=== PATIENT | male | born 1960 | race American Indian/Alaskan Native ===

== ENCOUNTER 2020-03-13 06:44 | Day surgery (SDC) | payer BC ==
[2020-03-13] MEDS ORDERED: SODIUM CHLORIDE 0.9% 1000 ML 1,000 ML IV SCH (07:00)
[2020-03-13] MEDS ORDERED: WATER FOR IRRIG STERILE 250 ML BOTTLE IR ONE (07:33)
--- NOTE | 2020-03-13 07:38 | Anesthesia Day of Surgery ---
Anesthesia Day of Surgery - Day of Surgery Patient Examined: Yes Patient H&P Reviewed: Yes Patient is NPO: Yes
--- NOTE | 2020-03-13 07:38 | Anesthesia Consultation ---
Anesthesia Consult and Med Hx Date of service: 03/13/20 - Airway Anesthetic Teeth Evaluation: Good ROM Head & Neck: Adequate Mental/Hyoid Distance: Adequate Mallampati Class: Class II Intubation Access Assessment: Probably Good - Pre-Operative Health Status ASA Pre-Surgery Classification: ASA3 Proposed Anesthetic Plan: MAC - Pulmonary Hx Smoking: No Hx Asthma: No Hx Respiratory Symptoms: No SOB: No COPD: No Home Oxygen Therapy: No Hx Pneumonia: No Hx Sleep Apnea: Yes - Cardiovascular System Hx Hypertension: Yes Hx Coronary Artery Disease: No Hx Heart Attack/AMI: No Hx Angina: No Hx Percutaneous Transluminal Coronary Angioplasty (PTCA): No Hx Cardia Arrhythmia: No Hx Pacemaker: No Hx Internal Defibrillator: No Hx Valvular Heart Disease: No Hx Heart Murmur: No Hx Peripheral Vascular Disease: No - Central Nervous System Hx Neuromuscular Disorder: No Hx Seizures: No CVA: No Hx Back Pain: No Hx Psychiatric Problems: No - Gastrointestinal Hx Ulcer: No Hx Gastroesophageal Reflux Disease: Yes (AVMs) - Endocrine Hx Renal Disease: No Hx End Stage Renal Disease: No Hx Cirrhosis: No Hx Liver Disease: No Hx Insulin Dependent Diabetes: No Hx Non-Insulin Dependent Diabetes: No Hx Thyroid Disease: No Hx Hypothyroidism: No Hx Hyperthyroidism: No - Hematic Hx Anemia: Yes Hx Sickle Cell Disease: No - Other Systems Hx Alcohol Use: Yes (occ.) Hx Substance Use: No Hx Cancer: No Hx Obesity: No
[2020-03-13] MEDS ORDERED: propofoL 200 MG/20 ML VIAL IV ONE ×4 (08:46→09:30)
[2020-03-13] MEDS ORDERED: LIDOCAINE MPF (2%) 20 MG/1 ML VIAL 5 ML ONE (08:47)
[2020-03-13] MEDS ORDERED: SODIUM CHLORIDE 0.9% 1000 ML IV SOLN IV ONE ×2 (08:57→09:20)
--- NOTE | 2020-03-13 09:51 | Short Stay Summary ---
Short Stay Documentation Date of service: 03/13/20 - History H&P: obtained from office - Allergies and Medications Current Medications: Allergies No Known Allergies Allergy (Unverified 03/12/20 10:23) Home Medications Medication Instructions Recorded Confirmed Last Taken Type Amlodipine Besylate 03/12/20 Unknown History Iron 03/12/20 Unknown History Vitamin C 03/12/20 Unknown History Active Medications Sodium Chloride (Nacl 0.9% 1000 Ml) 1,000 mls @ 50 mls/hr IV DIRECT [facility]HE Last Admin: 03/13/20 07:45 Dose: 50 mls/hr Documented by: - Physical exam General appearance: no acute distress, well-nourished Integumentary: no rash, no growths, no abnormal pigmentation HEENT: Atraumatic, PERRLA, EOMI, Mucous membr. moist/pink Lungs: Clear to auscultation, Normal air movement Breasts: deferred Heart: Regular rate, Normal S1, Normal S2, No murmurs Gastrointestinal: normoactive bowel sounds, no tenderness, no distended, no masses, no guarding, no organomegaly Male Genitourinary: deferred Rectal Exam: normal rectal tone, no mass Extremities: no ischemia, pulses intact, pulses symmetrical, No edema, normal temperature, normal color, Full ROM Neurological: Normal gait, Normal speech, Strength at 5/5 X4 ext, Normal tone, Sensation intact, Cranial nerves 3-12 NL - Brief post op/procedure progress note Date of procedure: 03/13/20 Procedure: see dictations Findings: see dictations Estimated blood loss: minimal Pathology: none Condition: stable - Disposition Condition at discharge: Good Disposition: DC-01 TO HOME OR SELFCARE - Discharge Diagnoses (1) Iron deficiency anemia due to chronic blood loss Status: Acute (2) Hereditary hemorrhagic telangiectasia Status: Acute Short Stay Discharge Plan Activity: other (No driving for 24 hours) Weight Bearing Status: Weight Bear as Tolerated Diet: regular Follow up with: NADIR MALDONADO [Other] - 7 Days
--- NOTE | 2020-03-13 09:57 | Operative Report ---
Operative Report Operative Report: Date of procedure: 03/13/2020 Procedure: Esophagogastroduodenoscopy with ablation of multiple AVMs of the duodenum and stomach. Clip placement on a bleeding AVM in the stomach. Preprocedure diagnosis: Iron deficiency anemia secondary to chronic blood loss. History of hereditary hemorrhagic telangiectasia. 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 Endoscopist: Dr. Fischer Anesthesia: Monitored anesthesia care per anesthesia department Medications: Propofol per anesthesia. Estimated blood loss: Minimal After careful discussion of the nature and purpose of the procedure as well as details the technique risks benefits and alternatives consent was obtained. The patient was placed in the left lateral decubitus position and medicated per anesthesia. The tip of the Olympus video scope was passed per orum under direct vision into the esophagus and advanced into the stomach and descending duodenum. A small amount of old blood and coffee-ground material was noted on the greater curvature of the stomach upon entry. The scope was advanced to the third portion of the duodenum and the mucosa was inspected on careful withdrawal. Multiple small AVMs were present in the third, second and bulbar area. All lesions were ablated with the argon plasma e commerce architect, approximately 10 lesions. The scope was withdrawn into the stomach and the stomach gently insufflated. Multiple AVMs 2 to 5 mm in size were present on the greater curvature of the antrum, lesser and greater curvatures of the body of the stomach. All AVMs were ablated with the argon plasma e commerce architect. 1 lesion continue to bleed and required placement of a clip. The cardia and fundus of the stomach were normal on retroflexed view. The scope was then withdrawn in the forward position. The esophagogastric junction was at 42 cm. The esophageal body was normal throughout. The procedure was was well tolerated and the patient was observed in recovery. Impressions: Multiple AVMs of the duodenum and stomach, approximately 20 lesions altogether. Status post ablation of all lesions and placement of a Hemoclip on 1 lesion. Plan: Avoidance of NSAIDs. Further evaluation with colonoscopy today. Electronically signed: Nacho Fischer MD
--- NOTE | 2020-03-13 10:02 | Operative Report ---
Operative Report Operative Report: Date of procedure: 03/13/2020 Preprocedure diagnosis: Diagnostic study for rectal bleeding, iron deficiency an emia. Patient also has a family history of colon cancer, his father. Post procedure diagnosis: Normal terminal ileum. 3 AVMs-cecum, transverse and descending colon. Normal colon otherwise. Procedure: Colonoscopy to the cecum with ablation of 3 AVMs with the argon plasma amusement ride operator Endoscopist: Dr. Fischer Anesthesia: Monitored anesthesia care per anesthesia department Estimated blood loss: 0 Medications: Monitored anesthesia care. See separate report by anesthesia for details. After careful discussion of the nature and purpose of the procedure as well as details of the technique risks benefits and alternatives the patient gave consent. Please see recent history and physical from the office. The patient was placed in the left lateral decubitus position and medicated per anesthesia. A rectal exam was performed sphincter tone was normal there were no masses palpable. The [employer] 570 scope was passed transanally and advanced under continuous direct vision without difficulty to the cecum. The colon was well prepared. A 5 mm AVM was present in the dome of the cecum. This was coagulated with the argon plasma amusement ride operator. Another 5 mm AVM is present in the transverse colon and another 5 mm lesion seen in the descending colon. Both were ablated with the APC. There was no residual bleeding post ablation. The rectum was normal on forward and retroflexed views. The procedure was well-tolerated overall and the patient was observed in recovery. Conclusions: 3 AVMs present-cecum, transverse and descending colon. Lesions ablated by APC. Plan: Follow-up colonoscopy in 5 years due to family history of colon cancer in a first-degree relative. Earlier study if indicated clinically. Signed electronically: Nacho Fischer M.D.
[2020-03-13 10:57] VITALS: BP 141/78
== END 2020-03-13 06:45 | disposition home or self-care (01) ==
LOC: GIO 06:44
PROVIDERS: ATTEND Internal Medicine Gastroenterology
DX: K62.5 Hemorrhage of anus and rectum (principal); D50.0 Iron deficiency anemia secondary to blood loss (chronic); I78.0 Hereditary hemorrhagic telangiectasia; I10 Essential (primary) hypertension; G47.30 Sleep apnea, unspecified; K21.9 Gastro-esophageal reflux disease without esophagitis; Z72.89 Other problems related to lifestyle; Z80.0 Family history of malignant neoplasm of digestive organs; Z79.899 Other long term (current) drug therapy
CPT/HCPCS: 43255; 45382; 45388; J2704; J7030